=== PATIENT | female | born 1985 | race African-American/Black ===

== ENCOUNTER 2020-09-14 15:30 | Day surgery (SDC) | payer OTHER ==
[2020-09-14 16:17] VITALS: BMI 28.5
[2020-09-14] MEDS ORDERED: hydrALAZINE 20 MG/ML VIAL SLOW IVP PRN (17:16)
--- NOTE | 2020-09-14 17:48 | PRG ---
DATE OF SERVICE: 09/14/2020 PRIMARY OB: Tian Wu MD CHIEF COMPLAINT: Abdominal pain. HISTORY OF PRESENT ILLNESS: The patient is a 35-year-old, G5, P3 female, with an intrauterine at 33 weeks and 2 days, presenting to Labor and Delivery with uterine contractions that she reports has significantly improved in the last couple hours. The patient reports that she has only felt two contractions in the last hour. She had been feeling them as frequently as every 4 to 7 minutes earlier in the day at work. The patient has a history of chronic hypertension on labetalol. She denies headaches, shortness of breath, abdominal pains or other concerning features. The patient denies fever, cough, chest pain, shortness of breath, nausea, vomiting, diarrhea, constipation, hip problems, knee problems, muscle weakness. She denies any significant change in discharge, urinary urgency or frequency. The patient denies any use of drugs or methamphetamines for which she was positive earlier in the . The patient reports that she had intercourse last night. PAST MEDICAL HISTORY: Chronic hypertension. PAST SURGICAL HISTORY: She has had a D and C and cholecystectomy. OB HISTORY: She has had four term deliveries with one stillbirth at term. SOCIAL HISTORY: She has had tested positive for methamphetamines. She reports tobacco use and marijuana use until April. ALLERGIES: NO KNOWN DRUG ALLERGIES. MEDICATIONS: Labetalol 100 mg three times a day, vitamins. OB LABS: Blood type is at A positive. Antibody screen is negative. She is rubella equivocal. RPR is nonreactive. Hepatitis B surface antigen is negative. HIV is negative. Sickle cell screening is negative. Again, UDS was positive for methamphetamines. GC and chlamydia were negative. REVIEW OF SYSTEMS: Per HPI. PHYSICAL EXAMINATION: VITAL SIGNS: Blood pressures 140/78, 145/72, 151/93. Heart rate in the 70s, saturating 100% on room air. In reviewing her record, these are consistent with blood pressures that she has been having over the last several months controlled on the above-mentioned antihypertensive medications. GENERAL: She appears to be in no acute distress. She is alert and oriented, cooperative, and pleasant to interact with. HEAD: Normocephalic, atraumatic. LUNGS: Clear to auscultation bilaterally. HEART: Regular rate and rhythm. ABDOMEN: Gravid, soft, nontender. EXTREMITIES: Nontender, nonedematous. CERVICAL: Closed, thick and high. Fetus is showing a baseline in the 140s with moderate long-term variability, positive 15 x 15 accelerations, no decelerations. There are no contractions visible on the tocometer. ASSESSMENT AND PLAN: The patient is a 35-year-old multiparous female with an intrauterine at 33 weeks and 2 days, presenting with contractions that have spontaneously dissipated significantly since she was alerted to them earlier in the day. She has no evidence of labor at this time. She does have a history of chronic hypertension, which appears to be stable. She has mild range of blood pressures here that are consistent with pressures that she has documented in her record. The patient has followup with Dr. Wu on Monday that we have encouraged that she keep. Fetus has a category 1 tracing and reactive NST. The patient is being discharged home. Job ID: [id number]
[2020-09-15] MEDS ORDERED: FLU VACC QS2020-21(6MOS UP)/PF 60 MCG/0.5 ML SYRINGE IM ONE (16:45)
== END 2020-09-14 16:45 | disposition home health service (06) ==
LOC: L&D/OP 15:30
PROVIDERS: ATTEND Family Medicine
DX: O47.03 False labor before 37 completed weeks of gestation, third trimester (principal); O10.913 Unspecified pre-existing hypertension complicating pregnancy, third trimester; O09.293 Supervision of pregnancy with other poor reproductive or obstetric history, third trimester; O09.523 Supervision of elderly multigravida, third trimester; Z3A.33 33 weeks gestation of pregnancy; Z79.899 Other long term (current) drug therapy
CPT/HCPCS: 99282

== ENCOUNTER 2020-09-26 00:04 | Day surgery (SDC) | payer OTHER ==
[2020-09-26 00:39] VITALS: BP 130/75; TEMP 98.4; BMI 28.8
[2020-09-26] MEDS ORDERED: hydrALAZINE 20 MG/ML VIAL SLOW IVP PRN (00:58)
--- NOTE | 2020-09-26 01:17 | PDOC.LDHP ---
Labor and Delivery H&P Chief complaint: contractions HPI: 35yo presents at 35 weeks for contractions. Pt stated that they started this morning and then went away this afternoon before returning tonight. She was starting to feel uncomfortable with them so she went for a walk and states that after that they get close together, approximately 5-10 minutes apart for about 30 minutes prompting her to come in for evaluation. At this time pt states the contractions have spaced back out and she is not feeling them as much. Pt is scheduled for induction on 10/11. Hx of THC and meth use in this but pt denies any recent use. Current gestational age (weeks): 35 Due date: 11/04/20 Grav: 6 Para: 3 ([id number]) OB History Details: 1 miscarriage and 1 stillborn Current complications: hypertension Abnormal US findings: No Past Medical History: Chronic htn, polysubstance abuse Current medications: pre- vitamins Previous surgical history: cholecystectomy Allergies/Adverse Reactions: Allergies Allergy/AdvReac Type Severity Reaction Status Date / Time No Known Drug Allergies Allergy Verified 09/26/20 00:27 Social history: tobacco use, drug use (meth, THC) - Physical Exam Vital signs reviewed and normal: yes General: NAD Heart: RRR Lungs: CTAB Abdomen: gravid Extremeties: no edema FHT: category 1, variability present [place] contractions every: No contractions on the monitor - OB Labs Blood type: A RH: positive Antibody Screen: negative HIV: negative RPR: negative HEPSAg: negative - Assessment 3rd Trimester - Contractions - Plan -: - UA: ditry catch, no leuks or nitrites - [place] showed no contractions, very short periods of uterine irritability - Discussed proper labor precautions with patient Plan: DC home with return precautions. Routine f/u with Dr. Wu - next appointment in 5 days. Continue oral fluid hydration. Addendum - Attending - Attending Attestation Date/Time: 09/26/20 [id number] I personally evaluated the patient and discussed the management with Dr. Astudillo. I agree with the History, Examination, Assessment and Plan documented above.
[2020-09-26 01:36] LABS: Bacteria/HPF 2+ HPF (None Seen); Bilirubin Negative (Negative); Blood, Urine Negative (Negative); Clarity Clear (Clear); Glucose, Urine (Dipstick) Normal (Negative); Ketone, Urine Negative (Negative); Leukocyte Negative Leu/uL (Negative); Nitrite Negative (Negative); Protein, Urine (Dipstick) Negative (Neg-Trace); RBC/HPF 0-3 HPF (0-3); Specific Gravity, Urine 1.019 (1.002-1.036); Urobilinogen 3 mg/dL (Less than 2); WBC/HPF 0-3 HPF (0-3); pH, Urine 6.5 (5.0-9.0)
[2020-09-26 01:39] LABS: Urine Culture Reflex No No
[2020-09-26] MEDS ORDERED: FLU VACC QS2020-21(6MOS UP)/PF 60 MCG/0.5 ML SYRINGE IM ONE (09:00)
== END 2020-09-26 01:55 | disposition home or self-care (01) ==
LOC: L&D/OP 00:04
PROVIDERS: ATTEND Family Medicine
DX: O47.03 False labor before 37 completed weeks of gestation, third trimester (principal); O10.913 Unspecified pre-existing hypertension complicating pregnancy, third trimester; O09.523 Supervision of elderly multigravida, third trimester; Z3A.35 35 weeks gestation of pregnancy; Z79.82 Long term (current) use of aspirin; Z79.899 Other long term (current) drug therapy
CPT/HCPCS: 81001; 99283

== ENCOUNTER 2020-09-30 14:28 | Day surgery (SDC) | payer OTHER ==
[2020-09-30] MEDS ORDERED: hydrALAZINE 20 MG/ML VIAL SLOW IVP PRN (14:50)
[2020-09-30 15:22] VITALS: BMI 27.9
--- NOTE | 2020-09-30 15:31 | ULT ---
US Biophysical Profile: 09/30/2020 2:50 PM CLINICAL HISTORY: Nonreactive stress test at 30 weeks gestational age. COMPARISON: None. FINDINGS: heart rate: 140 bpm. LORENZA: 18.5 cm Biophysical profile: 8 of 8 IMPRESSION: Normal biophysical profile
--- NOTE | 2020-09-30 16:15 | PRG ---
DATE OF SERVICE: 09/30/2020 PRIMARY OB: Dr. Tian Wu. CHIEF COMPLAINT: Nonreactive NST. HISTORY OF PRESENT ILLNESS: The patient is a 35-year-old G6, P3 female, with an intrauterine at 35 weeks and 4 days, complicated by chronic hypertension, on labetalol 100 mg t.i.d. The patient was seen in the office for routine visit and during her testing, was noted to have a nonreactive NST and was sent to Labor and Delivery for evaluation. The patient denies any recent illness, fever, cough, headache, chest pain, shortness of breath, nausea, vomiting, diarrhea, or constipation. She denies any new rashes, hip problems, knee problems, muscle weakness. She denies any labor complaints. The patient reports that she feels the baby moving well. PAST MEDICAL HISTORY: Chronic hypertension, anxiety and depression. PAST SURGICAL HISTORY: Cholecystectomy and D and C. SOCIAL HISTORY: The patient reports that she smokes about half pack per day. Denies drug or alcohol use. MEDICATIONS: vitamins and labetalol. OB LABS: Unavailable at time of dictation. REVIEW OF SYSTEMS: Per HPI. PHYSICAL EXAMINATION: VITAL SIGNS: Blood pressure 126/79, heart rate of 83, respiratory rate 18. GENERAL: She appears to be in no acute distress. She is alert, oriented, cooperative, and pleasant to interact with. HEAD: Normocephalic, atraumatic. LUNGS: Clear to auscultation bilaterally. HEART: Has a regular rate and rhythm. ABDOMEN: Gravid, soft, nontender. EXTREMITIES: Nontender, nonedematous. BPP was performed and found to be 8/8. ASSESSMENT AND PLAN: The patient is a 35-year-old multiparous female with an intrauterine at 35 weeks and 4 days, complicated by chronic hypertension and nonreactive NST today during routine testing. Here, the patient has reassuring BPP of 8/8 that information has been communicated to her and her provider, Dr. Wu. The patient is being discharged home. She has a followup appointment next week with Dr. Wu. Job ID: [id number]
== END 2020-09-30 15:40 | disposition home health service (06) ==
LOC: L&D/OP 14:28
PROVIDERS: ATTEND Obstetrics & Gynecology
DX: O10.913 Unspecified pre-existing hypertension complicating pregnancy, third trimester (principal); O99.333 Smoking (tobacco) complicating pregnancy, third trimester; F17.210 Nicotine dependence, cigarettes, uncomplicated; Z3A.35 35 weeks gestation of pregnancy; Z79.82 Long term (current) use of aspirin; Z79.899 Other long term (current) drug therapy
CPT/HCPCS: 76819; 99281

== ENCOUNTER 2020-10-07 12:17 | Outpatient (CLI) | payer OTHER ==
[2020-10-07 22:14] LABS: SARS-CoV-2 MS2 Positive; SARS-CoV-2 N Gene Negative; SARS-CoV-2 S Gene Negative; SARS-CoV-2 by NAA Not Detected (NotDetected); SARS-CoV-2 orf1ab Negative
== END 2020-10-07 12:18 | disposition home or self-care (01) ==
LOC: LABBT 12:17
PROVIDERS: ATTEND Family Medicine
DX: Z20.828 Contact with and (suspected) exposure to other viral communicable diseases (principal)
CPT/HCPCS: 87635; U0003

== ENCOUNTER 2020-10-11 18:00 | Inpatient (IN) | payer OTHER ==
[~2020-10-11 18:00] MED LIST: Bupivacaine/Epinephrine 0.25% 30 ML VIAL ONE
[2020-10-11 20:03] VITALS: BMI 30.2
[2020-10-11] MEDS: Lactated Ringer's 1,000 ML IV SCH (21:00)
[2020-10-11] MEDS ORDERED: Ondansetron PF 4 MG/2 ML Vial IVP PRN (21:06)
[2020-10-11] MEDS ORDERED: Carboprost 250 MCG/ML AMP IM PRN (21:06)
[2020-10-11] MEDS ORDERED: Diphenoxylate HCl/Atropine Tablet PO PRN (21:06)
[2020-10-11] MEDS ORDERED: Butorphanol Tartrate 1 MG/ML VIAL SLOW IVP PRN (21:06)
[2020-10-11] MEDS ORDERED: NS / Oxytocin 40 units/1000ml 1,000 ML IV PRN (21:06)
[2020-10-11] MEDS ORDERED: Misoprostol 200 MCG TAB PR PRN (21:06)
[2020-10-11] MEDS ORDERED: HYDROcodone/Acetaminophen 5/325 mg Tablet PO PRN (21:06)
[2020-10-11] MEDS ORDERED: Lidocaine 1% (PF) 30 ML VIAL SC PRN (21:06)
[2020-10-11] MEDS ORDERED: Ibuprofen 800 MG TAB PO PRN (21:06)
[2020-10-11] MEDS ORDERED: hydrALAZINE 20 MG/ML VIAL SLOW IVP PRN (21:06)
[2020-10-11] MEDS ORDERED: Promethazine HCl 25 MG/ML VIAL IM PRN (21:06)
[2020-10-11] MEDS ORDERED: NS w/ Oxytocin 10 units 500 ML IV SCH ×2 (21:15)
[2020-10-11] MEDS ORDERED: Misoprostol 200 MCG TAB ONE (21:18)
[2020-10-11] MEDS: Misoprostol 100 MCG TAB PO SCH (21:21)
[2020-10-11 21:44] LABS: Hemoglobin 10.4 g/dL (12.0-16.0); Mean Corpuscular HGB CONC 32.6 g/dL (32.0-36.0); Mean Corpuscular Hemoglobin 28.5 pg (27.0-31.0); Mean Corpuscular Volume 87.5 fL (78.0-98.0); Mean Platelet Volume 8.6 fL (7.4-10.4); Platelet Count 237 thou/uL (130-400); RBC Distribution Width 14.8 % (11.5-14.5); Red Blood Cell (RBC) Count 3.66 mill/uL (4.20-5.40); White Blood Cell (WBC) Count 8.9 thou/uL (4.8-10.8)
[2020-10-11 22:23] LABS: Amphetamine Not Detected (NotDetected); Barbiturates Screen Not Detected (NotDetected); Benzodiazepine Screen Not Detected (NotDetected); Cocaine Metabolite Screen Not Detected (NotDetected); Medtox Control Line Valid? VALID (VALID); Medtox Reader # READER 4; Methadone Not Detected (NotDetected); Methamphetamine Not Detected (NotDetected); Opiate Screen Not Detected (NotDetected); Oxycodone Screen Not Detected (NotDetected); Phencyclidine (PCP) Not Detected (NotDetected); THC/Cannabinoid Screen Not Detected (NotDetected); Tricyclic Screen Not Detected (NotDetected)
[2020-10-11 22:31] LABS: Syphilis Antibody Index 13.39 S/CO (<1.00 Non-Reactive)
[2020-10-11 23:17] LABS: HBSAg Index 0.16 S/CO (0-0.99); Hep B Surf Ag Non-Reactive S/CO (NonReactive)
[2020-10-12 00:43] LABS: Syphilis Antibody INDETERMINATE (Nonreactive)
[2020-10-12] MEDS: Lactated Ringer's 1,000 ML IV SCH ×2 (02:40→09:23)
[2020-10-12] MEDS: Bupivacaine 0.5% 20 ML, fentaNYL Citrate/PF 400 MCG in Sodium Chloride 0.9% 72 ML EPIDURAL SCH ×2 (03:20→12:00)
[2020-10-12] MEDS ORDERED: Naloxone HCl 0.4 mg/ml Vial IVP PRN ×2 (03:26)
[2020-10-12] MEDS ORDERED: Promethazine HCl 25 MG/ML VIAL IM PRN ×2 (03:26→14:51)
[2020-10-12] MEDS ORDERED: ePHEDrine 50 MG/ML VIAL SLOW IVP PRN (03:26)
[2020-10-12] MEDS ORDERED: Ondansetron PF 4 MG/2 ML Vial IVP PRN ×2 (03:26→14:51)
[2020-10-12] MEDS ORDERED: diphenhydrAMINE 50 MG/ML VIAL IVP PRN (03:26)
[2020-10-12] MEDS ORDERED: Acetaminophen 325 MG TAB PO PRN (03:26)
[2020-10-12] MEDS ORDERED: Lactated Ringer's 500 ML IV PRN (03:26)
[2020-10-12] MEDS ORDERED: Fentanyl 4 mcg/Bupivacaine 0.1% Cassette 100 ML EPIDURAL SCH (03:30)
[2020-10-12] MEDS ORDERED: Communication Order-Pharmacy FS SCH (03:30)
[2020-10-12] MEDS: Misoprostol 100 MCG TAB PO SCH ×2 (07:57→17:48)
[2020-10-12] MEDS ORDERED: FLU VACC QS2020-21(6MOS UP)/PF 60 MCG/0.5 ML SYRINGE IM ONE (09:00)
[2020-10-12] MEDS ORDERED: Azithromycin 500 MG in Sodium Chloride 0.9% 250 ML 250 ML IVPB SCH (14:30)
[2020-10-12] MEDS: CEFAZOLIN 2 GM in Premix Bag 1 BAG IVPB SCH ×2 (14:45→22:13)
[2020-10-12] MEDS ORDERED: Milk Of Magnesia 30 ML UDCUP PO PRN (14:51)
[2020-10-12] MEDS ORDERED: NS / Oxytocin 40 units/1000ml 1,000 ML IV SCH (14:51)
[2020-10-12] MEDS ORDERED: Lanolin Ointment 7 GM TUBE TOP PRN (14:51)
[2020-10-12] MEDS ORDERED: diphenhydrAMINE 25 MG CAP PO PRN (14:51)
[2020-10-12] MEDS ORDERED: Bisacodyl 10 MG SUPP PR PRN (14:51)
[2020-10-12] MEDS ORDERED: hydrALAZINE 20 MG/ML VIAL ONE (15:17)
[2020-10-12] MEDS: hydrALAZINE 20 MG/ML VIAL SLOW IVP PRN ×2 (15:18→16:14)
[2020-10-12] MEDS: HYDROcodone/Acetaminophen 5/325 mg Tablet PO PRN ×2 (17:28→22:12)
[2020-10-12] MEDS: Ferrous Sulfate 325 MG TAB PO SCH (17:49)
[2020-10-12] MEDS: Ibuprofen 800 MG TAB PO SCH (22:11)
[2020-10-12] MEDS: Docusate Calcium (SURFAK) 240 MG CAP PO SCH (22:12)
[2020-10-13] MEDS: Ibuprofen 800 MG TAB PO SCH ×3 (05:22→21:24)
[2020-10-13] MEDS: CEFAZOLIN 2 GM in Premix Bag 1 BAG IVPB SCH ×3 (05:23→21:24)
[2020-10-13] MEDS: Ferrous Sulfate 325 MG TAB PO SCH ×2 (08:57→17:28)
[2020-10-13] MEDS: Prenatal Vitamin 1 TAB PO SCH (09:53)
[2020-10-13] MEDS: Docusate Calcium (SURFAK) 240 MG CAP PO SCH ×2 (09:54→21:23)
[2020-10-13] MEDS: HYDROcodone/Acetaminophen 5/325 mg Tablet PO PRN ×2 (10:12→18:45)
[2020-10-13] MEDS ORDERED: Adacel (T-DAP) 0.5 ML SYRINGE IM ONE (14:51)
[2020-10-13] MEDS ORDERED: Sodium Chloride 0.9% 10 ML ONE (15:37)
[2020-10-13] MEDS: cloNIDine 0.1 MG TAB PO PRN (21:24)
[2020-10-14] MEDS: Ibuprofen 800 MG TAB PO SCH ×2 (05:03→13:44)
[2020-10-14] MEDS: CEFAZOLIN 2 GM in Premix Bag 1 BAG IVPB SCH (06:21)
[2020-10-14] MEDS ORDERED: Losartan/Hydrochlorothiazide 100 mg/25 mg Tablet PO SCH (09:00)
[2020-10-14] MEDS: HYDROcodone/Acetaminophen 5/325 mg Tablet PO PRN (09:33)
[2020-10-14] MEDS: Ferrous Sulfate 325 MG TAB PO SCH ×2 (09:34→16:43)
[2020-10-14] MEDS: Prenatal Vitamin 1 TAB PO SCH (09:34)
[2020-10-14] MEDS: Docusate Calcium (SURFAK) 240 MG CAP PO SCH (09:34)
[2020-10-14] MEDS: cloNIDine 0.1 MG TAB PO PRN (12:19)
[2020-10-14 16:44] VITALS: BP 140/76; TEMP 98.3
[2020-10-14] MEDS ORDERED: Measles/Mumps/Rubella 10 MCG/0.5 ML VIAL SC ONE (18:30)
== END 2020-10-14 19:15 | disposition home or self-care (01) | DRG 806 ==
LOC: L&D 19:25 → 3SW 10-12 17:54
PROVIDERS: ADMIT Family Medicine; ATTEND Family Medicine
PROC: 10E0XZZ Delivery of Products of Conception, External Approach (ICD-10-PCS; principal; 2020-10-12)
PROC: 10D17Z9 Manual Extraction of Products of Conception, Retained, Via Natural or Artificial Opening (ICD-10-PCS; 2020-10-12)
PROC: 10907ZC Drainage of Amniotic Fluid, Therapeutic from Products of Conception, Via Natural or Artificial Opening (ICD-10-PCS; 2020-10-12)
DX: O10.02 Pre-existing essential hypertension complicating childbirth (principal); O99.324 Drug use complicating childbirth; Z37.0 Single live birth; F15.10 Other stimulant abuse, uncomplicated; Z20.828 Contact with and (suspected) exposure to other viral communicable diseases; Z3A.37 37 weeks gestation of pregnancy; O73.0 Retained placenta without hemorrhage
CPT/HCPCS: 36415; 51702; 80306; 85027; 86593; 86780; 86850; 86900; 86901; 87340; 88307; 90707; J0360; J0456; J0690; J2590; J3010; J3490; J7050